=== PATIENT | male | born 1935 | race Caucasian/White ===

== ENCOUNTER 2016-12-01 13:50 | Emergency (ER) | payer MEDICARE, BC ==
[2016-12-01] MEDS ORDERED: ASPIRIN 81 MG CHEWABLE CTB ONE (13:51)
[2016-12-01 14:06] LABS: BASOPHILS % (AUTO) 1 % (0-3); EOSINOPHILS % (AUTO) 2 % (0-9); HEMATOCRIT 43 % (39-53); MEAN CORPUSCULAR HGB CONC 35.5 gm/dl (32.0-36.0); MEAN CORPUSCULAR VOLUME 97 fL (80-100); NEUTROPHILS % (AUTO) 46.2 % (37-80)
[2016-12-01 14:19] LABS: ALBUMIN 3.4 gm/dl (3.4-5.0); CALCIUM 8.6 mg/dl (8.5-10.1); POTASSIUM 4.1 mMol/L (3.5-5.1)
[2016-12-01 14:41] LABS: NORMAL RBCS PRESENT
[2016-12-01 19:33] VITALS: O2SAT 95
[2016-12-01 19:34] VITALS: BP 136/71; PULSE 75; RESP 18
== END 2016-12-01 19:28 | disposition home or self-care (01) | DRG 310 ==
LOC: ED 13:50
DX: I44.0 Atrioventricular block, first degree (principal); R79.89 Other specified abnormal findings of blood chemistry
CPT/HCPCS: 36415; 71010; 80053; 84484; 85025; 93005; 99284; 99285

== ENCOUNTER 2017-10-31 06:57 | Emergency (ER) | payer MEDICARE, BC ==
[2017-10-31] MEDS ORDERED: ASPIRIN 81 MG CHEWABLE CTB PO STA (07:01)
[2017-10-31] MEDS ORDERED: HEPARIN SODIUM 5000 U/ML SOL IV ONE (07:01)
[2017-10-31] MEDS ORDERED: TICAGRELOR 90 MG TAB PO ONE ×2 (07:01→07:05)
[2017-10-31] MEDS ORDERED: NITROGLYCERIN 0.4 MG TAB SL PRN (07:01)
[2017-10-31] MEDS ORDERED: SODIUM CHLORIDE 0.9% FLUSH 10 ML SOL IV PRN (07:01)
[2017-10-31] MEDS ORDERED: MORPHINE SULFATE 10 MG/ML SOL IV PRN (07:01)
[2017-10-31] MEDS ORDERED: HEPARIN SODIUM 5000 U/ML SOL ONE (07:05)
[2017-10-31 07:20] VITALS: PULSE 106; TEMP 98.5
[2017-10-31 07:24] LABS: BASOPHILS % (AUTO) 1 % (0-3); EOSINOPHILS % (AUTO) 0 % (0-9); HEMATOCRIT 41 % (39-53); HEMOGLOBIN 13.6 gm/dl (13.5-17.7); LYMPHOCYTES % (AUTO) 20.78 % (10-50); MEAN CORPUSCULAR HEMOGLOBIN 33.2 pg (27.0-32.0); MEAN CORPUSCULAR HGB CONC 33.2 gm/dl (32.0-36.0); MONOCYTES % (AUTO) 7.1 % (0-12); NEUTROPHILS % (AUTO) 71.2 % (37-80)
[2017-10-31 07:29] LABS: MEAN CORPUSCULAR VOLUME 100 fL (80-100)
[2017-10-31 07:30] LABS: INR 1.08 (0.86-1.12)
[2017-10-31 07:43] VITALS: BP 120/75; RESP 104; O2SAT 94
[2017-10-31 07:43] LABS: CALCIUM 8.8 mg/dl (8.5-10.1); CARBON DIOXIDE 27.3 mEq/L (21-32); CREATININE 1.66 mg/dl (0.80-1.30); POTASSIUM 4.6 mMol/L (3.5-5.1); TROP I 3.2 ng/ml (0.000-0.056)
== END 2017-10-31 07:34 | disposition short-term general hospital (02) | DRG 282 ==
LOC: ED 06:57 → SUPCPDRO 06:57 → ED 07:34
DX: I21.09 ST elevation (STEMI) myocardial infarction involving other coronary artery of anterior wall (principal)
CPT/HCPCS: 71045; 80048; 82550; 84484; 85025; 85378; 85610; 93005; 96374; 99291; J1644; A9270-GY